=== PATIENT | female | born 1990 | race Asian ===

== ENCOUNTER 2019-11-07 09:11 | Outpatient (CLI) | payer OTHER ==
[2019-11-07 10:42] VITALS: BP 111/71
--- NOTE | 2019-11-07 10:42 | SLEEP CARE CONSULTATION ---
Information from patient questionnaire entered by Manuela Carbajal. I have reviewed and concur with the information entered by Manuela Carbajal. This document represents the service I personally performed and the decisions made by me, Magdi Cox MD, [facility]. History of Present Illness Reason for Visit: New patient Chief Complaint: reports: Snoring, Excessive daytime sleepiness, Observed pauses in breathing, Fatigue, Other (grinding teeth, sore jaw) Duration of Symptoms: 3 years Usual bedtime: 2299-6333 Time it takes to fall asleep: 45 minutes Snores at night: Yes Observed to quit breathing while asleep: Yes Sleeps alone due to snoring: No Reasons for waking at night: reports: Choking, Snoring, Gasping for air, Bathroom Toss, Turn, or Twitch while sleeping: Yes Recalls having dreams: Yes Usually gets out of bed at: 0520 Feels refreshed in the morning: No Morning headache: Yes Sleepy or fatigued during the day: Yes Ever fallen asleep while driving: Yes Takes day naps: Yes Dreams during day naps: Yes Prior sleep studies: No Additional HPI information: I had the pleasure of seeing Ms. Ayon today regarding the possibility of her having a sleep disorder. As you know, she is a 29 year old lady who complains of loud snore, observed apneas, frequent awakenings, nocturnal choking, and excessive daytime sleepiness. She also has dry mouth frequently in the morning. The patient tells me that she normally goes to bed around 9 - 10 pm, and it takes her approximately 15 minutes to fall asleep. She has been told that she snores loudly and irregularly at night. She has also been observed to stop breathing in her sleep. Her spouse can still sleep in the same bed. She can recall waking up on the average of 2 - 3 times during the night. Most of the time she wakes up because of having to use the bathroom. She has awakened o ccasionally because of her own snoring, choking, and having to gasp for air. There is not a lot of tossing and turning in her sleep. No somniloquy (sleep talking) or somnambulism (sleep walking). Generally she can recall having dreams. In the morning she usually gets up out of the bed around 5:20 a.m. not feeling refreshed nor rested. She usually has a morning headache that lasts all day. During the day she complains of feeling sleepy and fatigued. Her score on [place] Sleepiness Scale is 16 out of 24. She has fallen asleep while driving and has gone out of the filomena. She usually takes naps during the day. Upon falling asleep during the day she reports having dreams. She has sleep paralysis and symptoms of restless leg syndrome. She reports having impaired concentration during the day. Subjective Initial [place] Sleepiness Scale score: 16 Past Medical History Past Medical History: reports: Depression, GERD Social History The patient's occupation is active . Patient is and lives in [place]. Have you smoked in the past 12 months: No Alcohol use: No Caffeine use: No Family History Family history of sleep disordered breathing: Yes Family Hx Sleep Apnea: Mother: Snoring, Grandparent: Snoring Allergies and Home Medications Drug allergies reviewed: Yes (NKDA) Home medication list reviewed: Yes (none) Review of Systems Weight gain over past 5 years: 45 Cardiovascular: denies: high blood pressure, palpitations, chest pain, irregular heart rate or pulse, leg or foot swelling, have to sleep sitting up, other Respiratory: denies: shortness of breath, wheeze, sputum production, chronic cough, other Gastrointestinal: reports: heartburn, diarrhea, abdominal pain Urinary: denies: incontinence, frequency, urgency, impotence, other Neurological: reports: headaches Psychiatric: reports: anxiety, depression Ear/Nose/Throat: reports: dry mouth/throat Endocrine: reports: sluggishness, unexplained weakness Musculoskeletal: reports: neck pain, other (plantar fasciitis) Immunologic: denies: sneezing, rash, itching, allergies to food or environment, other Physical Exam Vital signs obtained and entered by: Dr. Cox Blood Pressure: 111/71 Cuff size: regular Heart Rate: 69 O2 Saturation: 99 Height: 5 ft 4 in Weight: 180 lb Body Mass Index: 30.9 BMI Classification: Obese Neck circumference: 15.5 Mood/affect: normal HEENT: No craniofacial malformation Nostrils: patent to airflow Turbinates: normal Septum: midline Mouth and throat: narrow oropharynx Soft palate: long Hard palate: normal Uvula: normal Uvula visualization: 50% Mallampati Class II Tongue: normal in size Tonsils: small Chin and jaw: normal size and position Neck: normal w/o lymphadenopathy or thyromegaly Heart: regular rate and rhythm Lungs: clear bilaterally Abdomen: soft, non-tender Extremities: no edema or clubbing Neurologic: intact, no focal deficits Impression and Plan IMPRESSION: 1. Obstructive Sleep Apnea-Hypopnea Syndrome, as suggested by history of loud and irregular snoring, observed cessation of breath while asleep, frequent awakenings during the night, nocturnal choking, unrefreshed sleep, morning headache, cognitive impairment, and daytime hypersomnolence. Narrow oropharynx and obesity are common predisposing factors for obstructive sleep apnea-hypopnea syndrome. Pathophysiology of sleep-disordered breathing was discussed. I recommend proceeding to polysomnography to confirm the diagnosis and to assess severity. If she has significant sleep disordered breathing, a manual CPAP titration study will also be performed to find the optimal treatment pressure. I informed the patient of what the sleep studies involve and after some discussion, she agreed to proceed. Plan: 1. Schedule an in-laboratory polysomnography + manual CPAP titration study. 2. Avoid long distance driving or when feeling sleepy. 3. Avoid alcohol, sedative and muscle relaxant around bedtime. 4. Attempt to lose weight. 5. Return in 1 to 2 weeks after the study to discuss results and initiate therapy I spent 100% of this visit face to face with the patient with greater than 50% of this was spent time counseling the patient and coordination of care.
== END 2019-11-07 09:12 | disposition home or self-care (01) ==
LOC: SC 09:11
PROVIDERS: ATTEND Internal Medicine Pulmonary Disease
DX: R06.83 Snoring (principal); R06.81 Apnea, not elsewhere classified; G47.8 Other sleep disorders; R51 Headache; R41.89 Other symptoms and signs involving cognitive functions and awareness; G47.10 Hypersomnia, unspecified; E66.9 Obesity, unspecified; Z68.30 Body mass index [BMI] 30.0-30.9, adult
CPT/HCPCS: 99203; 99212

== ENCOUNTER 2019-11-12 20:41 | Outpatient (CLI) | payer OTHER | END 2019-11-12 20:42 | disposition home or self-care (01) | LOC: SC 20:41 | PROVIDERS: ATTEND Internal Medicine Pulmonary Disease | DX: G47.61 Periodic limb movement disorder (principal) | CPT/HCPCS: 95810 ==

== ENCOUNTER 2019-11-22 10:27 | Outpatient (CLI) | payer OTHER ==
[2019-11-22 11:44] VITALS: BP 114/76
--- NOTE | 2019-11-22 11:44 | SLEEP CARE CONSULTATION ---
Information from patient questionnaire entered by Manuela Carbajal. I have reviewed and concur with the information entered by Manuela Carbajal. This document represents the service I personally performed and the decisions made by me, Marina Scott RN, MSN, [employer]. History of Present Illness Initial [place] Sleepiness Scale score: 16 Current [place] Sleepiness Scale score: 14 Additional HPI information: GLENDY GARCIA returnsfor follow up and results of the recently performed polysomnography. I explained the pathophysiology behind obstructive sleep apnea. Patient does not have sleep apnea and was advised how weight gain could increase the risk of developing sleep apnea in the future. I strongly encouraged the patient to lose weight. Patient has snoring. Snoring can be reduced by weight loss. 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 Weight loss is best achieved with diet consult. Patient instructed to contact PCP for referral. Snoring can also be treated with an oral appliance from a dentist. Advised to check insurance coverage. In addition, an ENT evaluation can be do to see if other treatment is indicated. Patient counseled not drink alcohol less than 4 hours before bedtime as it can increase snoring and apnea. Patient was cautioned about risks of drowsy driving until sleepiness symptoms resolve. Patient denies drowsy driving. [facility] patient education on snoring and sleep apnea given and reviewed. She reports an itching sensation and an urge to move her legs when in bed trying to go to sleep and feels better for a short time after movement. This occurs a few times a week. ] Sleep Study - Results Polysomnography/Home Sleep Study results: The quality of the study is good. The patient had slightly reduced sleep efficiency due to a few awakenings after the sleep onset. The sleep architecture was normal. Respiratory monitoring showed no significant sleep disordered breathing (AHI = 0.3) or hypoxia (humberto oxygen saturation of 94%). The patient slept adequately in supine position (supine AHI = 0.0; non-supine = 0.68). Snore was light to moderate in intensity. There was mild periodic leg movement of sleep not associated with sleep fragmentation. Cardiac rhythm was normal sinus rhythm without significant arrhythmia. No abnormal behavior (parasomnia) observed during the night. Allergies and Home Medications Known drug allergies: No Home medication list reviewed: Yes (none) Review of Systems Review of systems same as previous: Yes Physical Exam Blood Pressure: 114/76 Cuff size: wrist Heart Rate: 74 O2 Saturation: 98 Height: 5 ft 4 in Weight: 190 lb (with fatigues and boots) Body Mass Index: 32.5 BMI Classification: Obese Impression and Plan 1. Snoring but no significant sleep disordered breathing. Patient advised that often weight loss will reduce snoring as well as apnea risk. An oral appliance can also be used for snoring. This would require a dental consultation. Patient cautioned not to use other online appliances as can cause bite issues. Patient not interested in oral appliance at this time. Patient is advised to check if insurance will cover. An ENT consult can also be helpful to determine if any other treatment is an option. 2. Periodic limb movement, mild, that did not fragment patients sleep. Periodic limb movement of sleep (PLMS) is characterized by episodes of repetitive limb movements that occur during sleep and usually involve the lower limbs. The etiology is unknown but can be associated with restless leg syndrome (RLS), neuropathy, spinal cord diseases, kidney disease, rheumatological disorders, narcolepsy, obstructive sleep apnea, and REM sleep behavior disorder. Other factors that can increase PLMS and/or RLS are heredity and iron deficiency as reflected by a low serum ferritin level below 50 to 75mcg / L. Several medications can precipitate or aggravate PLMS such as selective serotonin re- uptake inhibitor antidepressants, tricyclic antidepressants, lithium, and dopamine receptor antagonists with the exception of bupropion. Caffeine can also aggravate PLMS and should be avoided. Sleep hygiene methods can also improve sleep as well as lifestyle changes such as regular exercise. Patient was advised since she has RLS symptoms a few times a week that contribute to difficulty going to sleep further evaluation is indicated. 3. Restless Leg Synd philippe (RLS): as exhibited by an urge to move the legs and generally involves symptoms of uncomfortable and unpleasant sensations. Symptoms usually begin or worsen with inactivity or periods of rest such as sitting or lying down. These symptoms can be partially or completely relieved with movement such as stretching, walking or other movement. Generally they occur late in the evening or at bedtime. Sometimes the urge to move legs can be without discomfort or involve the arms and other parts of the body. Symptoms can cause patient concern and difficulty initiating sleep affecting daytime functioning. RLS is a sensorimotor disorder that can be hereditary and is often associated with PLMS periodic limb movement of sleep. It can also be secondary to mild iron deficiency (serum ferritin less than 50mcg - 75mcg/L) and magnesium deficiencies. Other medical conditions associated with RLS are narcolepsy, migraine headaches, chronic obstructive pulmonary disease, Parkinson disease, multiple sclerosis, peripheral neuropathy, obstructive sleep apnea, diabetes mellitus, fibromyalgia, rheumatoid arthritis, nocturnal eating, obesity, thyroid disease and heart disease and renal failure as well as mood disorders and ADHD. Also, medications such as most antidepressants with exception of bupropion, some centrally active dopamine receptor antagonists, sedating antihistamines such as Benadryl can precipitate or aggravate this disorder. Other factors that can increase symptoms are sleep deprivation, caffeine, nicotine and alcohol use. I recommend ruling out these conditions if not already done. [facility] Restless Leg syndrome pamphlet given and reviewed. * Follow up with PCP for further evaluation of fatigue, PLMS, RLS. * Attempt to lose weight * Avoid alcohol consumption near bedtime * The patient is cautioned about driving until sleepiness is completely resolved. * Return as needed Time Spent with Patient (minutes): 33 I spent 100% of this visit face to face with the patient with greater than 50% of this was spent time counseling the patient and coordination of care.
== END 2019-11-22 10:28 | disposition home or self-care (01) ==
LOC: SC 10:27
PROVIDERS: ATTEND Nurse Practitioner Family
DX: R06.83 Snoring (principal); G47.61 Periodic limb movement disorder; G25.81 Restless legs syndrome
CPT/HCPCS: 99212; 99214